=== PATIENT | male | born 1940 | race Caucasian/White ===

== ENCOUNTER 2019-12-06 06:23 | Outpatient (CLI) | payer OTHER ==
[~2019-12-06] VITALS: Ht 186.7 cm; Wt 97.3 kg
[2019-12-06 07:59] VITALS: BP 94/52; Ht 186.7 cm; Wt 97.3 kg
[2019-12-06 08:36] LABS: APTT 35.6 SECONDS (22.8-39.4); INR 1.42 (0.85-1.17); PROTIME 17.3 SECONDS (11.6-15.0)
[2019-12-06 08:38] LABS: BASOPHILS 0.5 % (0-2); HEMATOCRIT 36.9 % (42.0-54.0); HEMOGLOBIN 11.9 g/dL (13.5-17.5); IMMATURE GRANULOCYTES 1.1 % (0-5); LYMPHOCYTES 12.8 % (15-50); MCH 30.5 pg (26.0-34.0); MCHC 32.2 g/dL (31.0-37.0); MCV 94.6 fL (80.0-100.0); MEAN PLATELET VOLUME 9.3 fL (7.4-10.4); NEUTROPHILS 68.6 % (40-80); PLATELET COUNT 181 10x3/uL (130-400); RDW 16.8 % (11.5-14.5); WBC 8.3 10x3/uL (4.8-10.8)
[2019-12-06 08:40] LABS: ALBUMIN 2.2 g/dL (3.4-5.0); ANION GAP 9.6 mmol/L (8-16); BILIRUBIN - DIRECT 0.34 mg/dL (0.00-0.30); BILIRUBIN - INDIRECT 0.56 mg/dL (0.00-1.00); BILIRUBIN - TOTAL 0.9 mg/dL (0.2-1.3); CALCIUM 8.3 mg/dL (8.5-10.1); CREATININE - SERUM 1.1 mg/dL (0.6-1.3); POTASSIUM - SERUM 5.6 mmol/L (3.5-5.1)
--- NOTE | 2019-12-06 10:35 | NUR ---
1031-REC'D FROM CT. AWAKE AND ALERT,DENIES PAIN,VSS. DRESSING TO RLQ CDI. REVIEWED DISCHARGE CRITERIA.VERBALIZED UNDERSTANDING. DAUGHTER WILL BE TO HOSPITAL AT 11:30 TO TAKE HOME
--- NOTE | 2019-12-06 11:15 | NUR ---
1110-TRAY TO ROOM. VSS.DRESSING CDI. DENIES COMPLAINTS.VERY PLEASANT
--- NOTE | 2019-12-06 11:47 | NUR ---
1125-REMOVED IV WITH CATH INTACT,DISPOSED INTO SHARPS.COVERED SITE WITH GUAZE,SECURED WITH MEDIPORE TAPE. REVIEWED POST OPERATIVE INSTRUCTIONS.VERBALIZED UNDERSTANDING. AWAITING FOR DAUGHTER FOR TRANSPORT HOME
--- NOTE | 2019-12-06 11:48 | NUR ---
1145-DAUGHTER AT HOSPITAL. PT ESCORTED OUT VIA W/C
== END 2019-12-06 11:45 | disposition home or self-care (01) ==
LOC: D.CT 06:23
PROVIDERS: ATTEND General Practice
DX: K74.60 Unspecified cirrhosis of liver (principal); R18.8 Other ascites; I25.10 Atherosclerotic heart disease of native coronary artery without angina pectoris; E11.9 Type 2 diabetes mellitus without complications; I10 Essential (primary) hypertension; E78.5 Hyperlipidemia, unspecified

== ENCOUNTER 2019-12-21 06:22 | Outpatient (CLI) | payer OTHER ==
[~2019-12-21] VITALS: Ht 186.7 cm; Wt 99.5 kg
[2019-12-21 06:48] LABS: BASOPHILS 0.5 % (0-2); EOSINOPHILS 1.2 % (0-7); HEMATOCRIT 38.1 % (42.0-54.0); HEMOGLOBIN 12.3 g/dL (13.5-17.5); IMMATURE GRANULOCYTES 0.9 % (0-5); LYMPHOCYTES 12.6 % (15-50); MCH 30.5 pg (26.0-34.0); MCHC 32.3 g/dL (31.0-37.0); MCV 94.5 fL (80.0-100.0); MEAN PLATELET VOLUME 9.2 fL (7.4-10.4); MONOCYTES 16.9 % (2-11); NEUTROPHILS 67.9 % (40-80); PLATELET COUNT 200 10x3/uL (130-400); RBC 4.03 10x6/uL (4.20-6.10); RDW 15.9 % (11.5-14.5)
[2019-12-21 06:54] LABS: APTT 35.2 SECONDS (22.8-39.4); INR 1.25 (0.85-1.17); PROTIME 15.6 SECONDS (11.6-15.0)
[2019-12-21 06:58] LABS: ALBUMIN 2.1 g/dL (3.4-5.0); ANION GAP 8.9 mmol/L (8-16); BILIRUBIN - TOTAL 0.84 mg/dL (0.2-1.3); CALCIUM 8.3 mg/dL (8.5-10.1); CARBON DIOXIDE 28.6 mmol/L (21.0-32.0); CREATININE - SERUM 1.1 mg/dL (0.6-1.3); POTASSIUM - SERUM 4.5 mmol/L (3.5-5.1); PROTEIN - SERUM 6.6 g/dL (6.4-8.2)
[2019-12-21 07:09] VITALS: Ht 186.7 cm; Wt 99.5 kg
[2019-12-21] MEDS ORDERED: BISOPROLOL FUMAR5 MG PO (07:21)
[2019-12-21] MEDS ORDERED: LASIX20 MG PO (07:22)
[2019-12-21] MEDS ORDERED: ALDACTONE50 MG PO (07:22)
[2019-12-21] MEDS ORDERED: GLUCOPHAGE1000 MG PO (07:23)
[2019-12-21] MEDS ORDERED: FOLIC ACID1 MG PO (07:24)
[2019-12-21] MEDS ORDERED: ULTRAM50 MG PO (07:24)
[2019-12-21] MEDS ORDERED: CRESTOR10 MG PO (07:24)
[2019-12-21] MEDS ORDERED: FENOFIBRATE54 MG PO (07:24)
[2019-12-21 08:39] LABS: ALBUMIN 2.1 g/dL (3.4-5.0); BILIRUBIN - DIRECT 0.28 mg/dL (0.00-0.30); BILIRUBIN - INDIRECT 0.55 mg/dL (0.00-1.00); BILIRUBIN - TOTAL 0.83 mg/dL (0.2-1.3); PROTEIN - SERUM 6.6 g/dL (6.4-8.2)
--- NOTE | 2019-12-21 11:34 | NUR ---
1000-REGULAR TRAY TO ROOM. VSS. DENIES PAIN. DERMABOND TO RLQ
--- NOTE | 2019-12-21 11:35 | NUR ---
1100-TOLERATED TRAY. DENIES COMPLAINTS. DERMOND TO RLQ. REVIEWED POST OPERATIVE INSTRUCTIONS. VERBALIZED UNDERSTANDING
--- NOTE | 2019-12-21 11:36 | NUR ---
1115-ESCORTED OUT VIA W/C WITH DAUGHTER AWAITING TO DRIVE HOME. VERY PLEASANT
== END 2019-12-21 11:15 | disposition home or self-care (01) ==
LOC: D.SP 06:22 → D.CT 08:00 → D.SP 11:15
PROVIDERS: ATTEND Radiology Diagnostic Radiology
DX: K74.60 Unspecified cirrhosis of liver (principal); R18.8 Other ascites; E11.9 Type 2 diabetes mellitus without complications; I10 Essential (primary) hypertension; E78.5 Hyperlipidemia, unspecified; Z79.84 Long term (current) use of oral hypoglycemic drugs

== ENCOUNTER 2020-01-09 06:22 | Outpatient (CLI) | payer OTHER ==
[~2020-01-09] VITALS: Ht 186.7 cm; Wt 96.4 kg
[~2020-01-09 06:22] MED LIST: ALDACTONE50 MG PO; BISOPROLOL FUMAR5 MG PO; CRESTOR10 MG PO; FENOFIBRATE54 MG PO; FOLIC ACID1 MG PO; GLUCOPHAGE1000 MG PO; LASIX20 MG PO; ULTRAM50 MG PO
[2020-01-09 07:37] VITALS: Ht 186.7 cm; Wt 96.4 kg
[2020-01-09 07:51] LABS: ALBUMIN 2.2 g/dL (3.4-5.0); ANION GAP 10.2 mmol/L (8-16); BILIRUBIN - TOTAL 0.75 mg/dL (0.2-1.3); CALCIUM 8.2 mg/dL (8.5-10.1); CARBON DIOXIDE 27.8 mmol/L (21.0-32.0); CREATININE - SERUM 1.2 mg/dL (0.6-1.3); PROTEIN - SERUM 6.1 g/dL (6.4-8.2)
[2020-01-09 07:59] LABS: APTT 35.6 SECONDS (22.8-39.4); INR 1.3 (0.85-1.17)
[2020-01-09 08:09] LABS: BASOPHILS 0.3 % (0-2); EOSINOPHILS 1.4 % (0-7); HEMATOCRIT 37.3 % (42.0-54.0); IMMATURE GRANULOCYTES 0.6 % (0-5); LYMPHOCYTES 9.3 % (15-50); MCH 30.2 pg (26.0-34.0); MCHC 32.2 g/dL (31.0-37.0); MCV 93.7 fL (80.0-100.0); MEAN PLATELET VOLUME 9.4 fL (7.4-10.4); MONOCYTES 17.4 % (2-11); PLATELET COUNT 183 10x3/uL (130-400); RBC 3.98 10x6/uL (4.20-6.10); RDW 15.6 % (11.5-14.5)
--- NOTE | 2020-01-09 15:08 | NUR ---
1010 B/P 85/47 PT STATES HE FEELS FINE BUT LOWERED HOB AND GAVE 100CC BOLUS OF IV FLUIDS. 1056 SPOKE WITH FEDERICO SKAGGS RN REGARDING PT'S B/P READINGS AND THAT A BOLUS OF FLUID WAS GIVEN. PT NEAR PREPROCEDURE BP READING OF 97/61. FEDERICO STATED THAT HIS CURRENT B/P READING OF 91/50 IS ACCEPTABLE FOR DISCHARGE. PT STATES HE FEELS GREAT AND BETTER AFTER FLUIDS REMOVED FROM PARACENTESIS. 1119 BP CONTINUES TO REMAIN STABLE AND NEAR PREPROCEDURE READING. IV DC'D. CATHETER TIP INTACT. NO BLEEDING AT SITE. BANDAID APPLIED. DISCHARGE INSTRUCTIONS GIVEN AND PT VOICES UNDERSTANDING OF INSTRUCTIONS. 1128 VITAL SIGNS HAVE BEEN DOCUMENTED ON POST PROCEDURE FORM AND IS PART OF THE PAPER CHART.
== END 2020-01-09 12:28 | disposition home or self-care (01) ==
LOC: D.SP 06:22 → D.CT 08:00 → D.SP 12:28
PROVIDERS: ATTEND General Practice
DX: K74.69 Other cirrhosis of liver (principal); R18.8 Other ascites; E11.9 Type 2 diabetes mellitus without complications; I10 Essential (primary) hypertension